=== PATIENT | male | born 1985 | race American Indian/Alaskan Native ===

== ENCOUNTER 2021-01-26 20:47 | Emergency (ER) | payer OTHER ==
[2021-01-26 21:11] VITALS: BP 129/87
[2021-01-26] MEDS ORDERED: traMADol 50 MG TAB PO ONE (21:51)
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
== END 2021-01-27 00:20 | disposition home or self-care (01) ==
LOC: ED 20:47
DX: S16.1XXA Strain of muscle, fascia and tendon at neck level, initial encounter (principal); S39.012A Strain of muscle, fascia and tendon of lower back, initial encounter; V49.49XA Driver injured in collision with other motor vehicles in traffic accident, initial encounter; Y93.89 Activity, other specified; Y92.89 Other specified places as the place of occurrence of the external cause; Y99.8 Other external cause status
CPT/HCPCS: 72040; 72100; 99283